=== PATIENT | male | born 1950 | race Caucasian/White ===

== ENCOUNTER 2018-05-31 12:05 | Inpatient (IN) ==
--- NOTE | 2018-05-31 13:23 | ED ---
HPI General Chief complaint: Extremity Injury, Lower Stated complaint: Right Ankle pain Time Seen by Provider: 05/31/18 12:59 Source: patient Mode of arrival: EMS Limitations: no limitations History of Present Illness HPI narrative: 67-year-old male with history of polycythemia on Hydrea, presents emergency department for evaluation of a right ankle injury. Patient states he tripped on a bucket, rolling his right ankle. He believes it is broken. Currently pain is a 5/10. He received morphine in route. Denies any alterations in sensation. Pain is constant, throbbing, exacerbated with movement or touch. He did not strike his head or lose consciousness. He has no other symptoms to report. Related Data Home Medications Medication Instructions Recorded Confirmed aspirin [Aspirin Low Dose] 81 mg PO DAILY 05/31/18 05/31/18 hydroxyurea [Hydrea] See Label Instructions .ROUTE 05/31/18 05/31/18 .COMPLEX Allergies Allergy/AdvReac Type Severity Reaction Status Date / Time penicillin G Allergy Severe Fever Unverified 06/29/17 01:12 Iodinated Contrast- Oral and Allergy Anaphylaxis Verified 05/31/18 14:00 IV Dye Review of Systems Except as stated in HPI: all other systems reviewed are negative PMFSH Medical History Medical History Kidney stone (Acute) Thrombocytopenia (Acute) Surgical History Surgical History S/P hernia surgery (Acute) Social History Social History Substance History: No History of Abuse Second Hand Smoke Exposure: No Smoking Status: Former smoker How Often Do You Have a Drink Containing Alcohol: Monthly or less Recent Travel in [facility] within the Last 8 Weeks: No Recent Out of Country Travel within the Last 8 Weeks: No Exam Narrative Exam Narrative: GENERAL: Well-nourished, well-developed male patient, lying in bed in no acute distress. SKIN: Focused skin assessment warm/dry. HEAD: Normocephalic. EYES: No scleral icterus. No injection or drainage. NECK: Supple, trachea midline. No JVD or lymphadenopathy. CARDIOVASCULAR: Regular rate and rhythm without murmurs, gallops, or rubs. RESPIRATORY: Breath sounds equal bilaterally. No accessory muscle use. GASTROINTESTINAL: Abdomen soft, non-tender, nondistended. EXTREMITY: The right ankle is very tender and swollen, especially over the lateral aspect. The range of motion is limited because of the pain and swelling. There is a lateral deformity. NEUROVASCULAR: Sensation intact to pain and light touch, foot is warm and well- perfused, dorsalis pedis pulse is palpable. BACK: Nontender without obvious deformity. No CVA tenderness. Procedures Orthopedic Joint Reduction Joint #1: Time Out Performed: Yes Side: right Joint Reduction Location: ankle Analgesia: procedural sedation Shoulder Technique Used (if applicable): other Technique Used: direct manipulation Post-Reduction Neuro Exam: intact Post-Reduction Vascular Exam: intact Post Reduction X-Ray Obtained: Yes Post Reduction X-Ray Results: reduced Splint Applied: Yes Patient Tolerated Procedure: well Additional Comments: Patient was placed under conscious sedation with propofol 100 mg intravenously Procedural Sedation Indications: fracture/dislocation reduction Presedation Evaluation: Patient has a history of polycythemia vera, otherwise healthy ASA Class: ASA 2 Moderate Systemic Disease Preparation: cinder crane operator applied, pulse oximeter, capnometry used, supplemental O2 applied, suction/airway equipment at bedside and IV secured Fentanyl: IV IV Propofol Dose (mgs): 100 Patient Tolerated Procedure: well Complications: none Interventions: oxygen applied Course Initial Documented Vital Signs Temperature 98.8 F 05/31/18 12:28 Pulse Rate 92 H 05/31/18 12:28 Respiratory Rate 16 05/31/18 12:28 Blood Pressure 114/65 05/31/18 12:28 Pulse Oximetry 95 05/31/18 12:28 Last Documented Vital Signs Temperature 98.8 F 05/31/18 12:28 Pulse Rate 92 H 05/31/18 12:28 Respiratory Rate 16 05/31/18 12:28 Blood Pressure 114/65 05/31/18 12:28 Pulse Oximetry 100 05/31/18 15:02 Medical Decision Making MIKA Attestation MIKA supervised visit: Yes MDM Narrative Medical decision making narrative: 67-year-old male presents emergency department for evaluation right ankle pain following an injury sustained when he tripped and fell over a bucket. Imaging study is ordered in the ambulance hallway. 1350 patient is transferred to a medical pod. He does have a trimalleolar fracture of the right ankle with posterior displacement. We discussed this with my attending physician. Lab work is ordered for preop prep. Ankle will be reduced here in the emergency department and splinted. I spoke with Dr. Chávez, orthopedic surgeon special education [employer] teacher. Patient will be admitted to medical service with planned surgical intervention tomorrow. Differential Diagnosis Differential Diagnosis: Differential diagnosis includes fracture, dislocation, fracture with dislocation, sprain, strain. Lab Data Lab results reviewed: Yes I reviewed the patient's lab results. Lab results narrative: Hemoglobin 12.4, bicarb 20.5, glucose 52, otherwise unremarkable Result diagrams: 05/31/18 15:30 05/31/18 15:30 Lab Results 05/31/18 05/31/18 05/31/18 Range/Units 15:30 15:30 15:30 WBC 3.8 L (4.0-11.0) th/mm3 RBC 2.94 L (4.50-5.90) mil/mm3 Hgb 12.4 L (13.0-17.0) gm/dL Hct 36.4 L (39.0-51.0) % MCV 123.9 H (80.0-100.0) fL MCH 42.4 H (27.0-34.0) pg MCHC 34.2 (32.0-36.0) % RDW 14.4 (11.6-17.2) % Plt Count 433 (150-450) th/mm3 MPV 7.5 (7.0-11.0) fL Neut % (Auto) 76.7 H (16.0-70.0) % Lymph % (Auto) 13.2 (9.0-44.0) % [place] % (Auto) 8.6 H (0.0-8.0) % Eos % (Auto) 0.7 (0.0-4.0) % Baso % (Auto) 0.8 (0.0-2.0) % Neut # (Auto) 2.9 (1.8-7.7) th/mm3 Lymph # (Auto) 0.5 L (1.0-4.8) th/mm3 [place] # (Auto) 0.3 (0.0-0.9) th/mm3 Eos # (Auto) 0.0 (0.0-0.4) th/mm3 Baso # (Auto) 0.0 (0.0-0.2) th/mm3 WBC Differential . Differential Comment Auto diff final PT 10.7 (9.8-11.6) sec INR 1.1 Ratio APTT 24.3 (24.3-30.1) sec Sodium 141 (136-145) meq/L Potassium 4.9 (3.5-5.1) meq/L Chloride 110 H (98-107) meq/L Carbon Dioxide 20.5 L (21.0-32.0) meq/L Anion Gap 11 (5-15) meq/L BUN 9 (7-18) mg/dL Creatinine 1.07 (0.60-1.30) mg/dL Estimated GFR 69 L (>89) mL/min Random Glucose 52 L (74-106) mg/dL Calcium 8.3 L (8.5-10.1) mg/dL Imaging Data Attestation: I personally reviewed and interpreted this imaging study as follows : My impression: Initial x-ray reveals trimalleolar fracture of the right ankle with posterior joint dislocation Radiologist's impression: Ankle X-Ray 05/31/18 13:01 CONCLUSION: Trimalleolar fracture involving the ankle with posterior joint dislocation. Chest X-Ray 05/31/18 13:48 CONCLUSION: No focal or acute intrathoracic disease. No significant changes. Ankle X-Ray 05/31/18 14:56 CONCLUSION: Status post closed reduction involving the previously noted posterior joint dislocation at the ankle. There is improved alignment of the fracture fragments on this postreduction study. Discharge Plan Discharge Disposition Patient Disposition: 30 Still Patient Discharge Condition Condition: Stable Discharge Details Diagnosis: Closed trimalleolar fracture of ankle Physicians Team ED Provider: Denis Persaud ED Midlevel Provider: Mavis Garcia Primary Care Provider: [facility] Other Providers: Mary Jane Wilson Rxs /Orders / Referrals /Forms Prescriptions: No Action hydroxyurea [Hydrea] 500 mg Capsule See Label Instructions .ROUTE .COMPLEX RF: 0 aspirin [Aspirin Low Dose] 81 mg Tablet,Delayed Release (Dr/Ec) 81 mg PO DAILY RF: 0 Status ED Status: Ready for Discharge
--- NOTE | 2018-05-31 13:35 | XR ---
EXAM DATE: 05/31/2018 1:22 PM EDT AGE/SEX: 67 years / Male INDICATIONS: Stepped out of a truck moving things today. CLINICAL DATA: This is the patient's initial encounter. Patient reports that signs and symptoms have been present for 1 day and indicates a pain score of 10/10. MEDICAL/SURGICAL HISTORY: None. None. COMPARISON: No prior exams available for comparison. FINDINGS: There are displaced fractures involving the distal fibula as well as distal tibia characteristic for a trimalleolar fracture. There is posterior joint dislocation at the mortise joint. The talus appears to be grossly intact. The calcaneus appears to be grossly intact. There is diffuse soft tissue swell ing. CONCLUSION: Trimalleolar fracture involving the ankle with posterior joint dislocation. Electronically signed by: Jaime Tan MD 05/31/2018 1:34 PM EDT
[2018-05-31] MEDS ORDERED: Morphine Sulfate Inj 2 MG/ML Vial IV.PUSH ONE (13:45)
[2018-05-31] MEDS ORDERED: Morphine Inj 4 MG/ML Vial IV.PUSH ONE (14:00)
--- NOTE | 2018-05-31 14:48 | XR ---
EXAM DATE: 05/31/2018 2:45 PM EDT AGE/SEX: 67 years / Male INDICATIONS: Evaluate for pneumonia, pneumothorax, or communicable disease. CLINICAL DATA: This is the patient's initial encounter. Patient reports that signs and symptoms have been present for 1 day and indicates a pain score of 0/10. MEDICAL/SURGICAL HISTORY: None. None. [place] [facility] [place]. . FINDINGS: A single AP view of the chest demonstrates the lungs to be symmetrically aerated without evidence of mass, infiltrate or effusion. The cardiomediastinal contours are unremarkable. Osseous structures a re stable. There are multiple old bilateral rib fractures. There appear to be old bilateral clavicula r fractures. No significant changes compared to the prior exam.. CONCLUSION: No focal or acute intrathoracic disease. No significant changes. Electronically signed by: Jaime Tan MD 05/31/2018 2:46 PM EDT
[2018-05-31] MEDS ORDERED: Sod Chloride 0.9% Inj 1,000 ML IV.SIG ONE (14:49)
--- NOTE | 2018-05-31 15:38 | XR ---
EXAM DATE: 05/31/2018 3:25 PM EDT AGE/SEX: 67 years / Male INDICATIONS: Post reduction CLINICAL DATA: This is the patient's initial encounter. Patient reports that signs and symptoms have been present for 1 day and indicates a pain score of 8/10. MEDICAL/SURGICAL HISTORY: None. None. COMPARISON: [facility] – [place], ANKLE COMPLETE RIGHT MIN 3V, 05/31/2018. . FINDINGS: This is compared to the prior exam. The previously noted posterior joint dislocation has been reduced . There is improved alignment involving the fractures of the distal tibia and fibula. There is overly ing cast material now in place. CONCLUSION: Status post closed reduction involving the previously noted posterior joint dislocation at the ankle. There is improved alignment of the fracture fragments on this postreduction study. Electronically signed by: Jaime Tan MD 05/31/2018 3:36 PM EDT
[2018-05-31 15:54] LABS: Baso % (Auto) 0.8 % (0.0-2.0); Eos % (Auto) 0.7 % (0.0-4.0); Hematocrit 36.4 % (39.0-51.0); Hemoglobin 12.4 gm/dL (13.0-17.0); Lymph # (Auto) 0.5 th/mm3 (1.0-4.8); Lymph % (Auto) 13.2 % (9.0-44.0); Mean Corpuscular HGB Conc 34.2 % (32.0-36.0); Mean Corpuscular Hemoglobin 42.4 pg (27.0-34.0); Mean Corpuscular Volume 123.9 fL (80.0-100.0); Mean Platelet Volume 7.5 fL (7.0-11.0); Mono # (Auto) 0.3 th/mm3 (0.0-0.9); Mono % (Auto) 8.6 % (0.0-8.0); Neut # (Auto) 2.9 th/mm3 (1.8-7.7); Neut % (Auto) 76.7 % (16.0-70.0); Platelet Count 433 th/mm3 (150-450); Red Blood Count 2.94 mil/mm3 (4.50-5.90); Red Cell Distribution Width 14.4 % (11.6-17.2); White Blood Count 3.8 th/mm3 (4.0-11.0)
[2018-05-31 16:05] LABS: Activated Partial Thrombo Time 24.3 sec (24.3-30.1); INR 1.1 Ratio; Prothrombin Time 10.7 sec (9.8-11.6)
[2018-05-31 16:19] LABS: Calcium 8.3 mg/dL (8.5-10.1); Carbon Dioxide 20.5 meq/L (21.0-32.0)
[2018-05-31 16:21] LABS: Potassium 4.9 meq/L (3.5-5.1)
--- NOTE | 2018-05-31 18:03 | P.HPIM ---
History of Present Illness Primary Care Physician: [facility] Chief Complaint: right ankle pain after a fall History of Present Illness: patient is a 67 y/o male with history of polycythemia who presented to ER after he fall. he says that he fell off a bucket and injured his right ankle. at the time of my evaluation the pain was moderate in intensity. he denies any prodromal symptoms before the fall, including chest pain, sob, or dizziness. he didn't pass out and there's no history of head trauma. Inpatient Certification: I certify that the inpatient services were ordered in accordance with Medicare regulations governing the order. This includes certification that hospital inpatient services are reasonable and necessary and in the case of services not specified as inpatient-only under 42 CFR 419.22(n), that they are appropriately provided as inpatient services in accordance to with the 2-midnight benchmark under 43 CFR 412.3(e) Review of Systems All other systems reviewed negative except as stated in HPI PMFSH - History History Provided By: Patient - Medical History Medical History: Medical History (Last Updated 05/31/18 @ 14:02 by Juhi Costello) Kidney stone Thrombocytopenia - Surgical History Surgical History: Surgical History (Last Updated 05/31/18 @ 14:02 by Juhi Costello) S/P hernia surgery - Tobacco History Second Hand Smoke Exposure: No Smoking Status: Former smoker - Alcohol History How Often Do You Have a Drink Containing Alcohol: Monthly or less - Substance Use History Substance History: No History of Abuse - Travel History Recent Travel in the [place] Within the Last 8 Weeks: No Recent Travel Out of the Country Within the Last 8 Weeks: No - Immunization History Tetanus Immunization: Unsure Hx Influenza Vaccine This Season: No Medications and Allergies Allergies Allergy/AdvReac Type Severity Reaction Status Date / Time penicillin G Allergy Severe Fever Unverified 06/29/17 01:12 Iodinated Contrast- Oral and Allergy Anaphylaxis Verified 05/31/18 14:00 IV Dye Home Medications Medication Instructions Recorded Confirmed Type aspirin [Aspirin Low Dose] 81 mg PO DAILY 05/31/18 05/31/18 History hydroxyurea [Hydrea] See Label Instructions .ROUTE 05/31/18 05/31/18 History .COMPLEX Exam Vital signs: Vital Signs 05/31/18 12:28 05/31/18 15:02 Temperature 98.8 F Pulse Rate 92 H Respiratory Rate 16 Blood Pressure 114/65 Pulse Oximetry 95 100 Intake & Output 05/30/18 05/31/18 05/31/18 18:59 06:59 18:59 Weight 88.451 kg - Constitutional no acute distress - Routine HEENT Exam Head: Present: atraumatic Eye: Present: PERRL - Routine Neck Exam Present: supple, full ROM - Routine Respiratory Exam Present: CTA bilaterally - Routine Cardiovascular Exam Present: RRR - Routine Abdominal Exam Present: soft - Routine Extremities Exam Comments: no pedal edema. - Routine Neurological Exam Present: alert, oriented X3 Results - Labs CBC & Chem 7: 05/31/18 15:30 05/31/18 15:30 Labs: Short CBC 05/31/18 Range/Units 15:30 WBC 3.8 L (4.0-11.0) th/mm3 Hgb 12.4 L (13.0-17.0) gm/dL Hct 36.4 L (39.0-51.0) % Plt Count 433 (150-450) th/mm3 BMP 05/31/18 15:30 Sodium 141 Potassium 4.9 Chloride 110 H Carbon Dioxide 20.5 L BUN 9 Creatinine 1.07 Calcium 8.3 L - Imaging Impressions Ankle X-Ray 05/31/18 13:01 CONCLUSION: Trimalleolar fracture involving the ankle with posterior joint dislocation. Chest X-Ray 05/31/18 13:48 CONCLUSION: No focal or acute intrathoracic disease. No significant changes. Ankle X-Ray 05/31/18 14:56 CONCLUSION: Status post closed reduction involving the previously noted posterior joint dislocation at the ankle. There is improved alignment of the fracture fragments on this postreduction study. Caprini VTE Risk Assessment Caprini VTE Risk Assessment: Moderate/High Risk (score >= 2) Caprini Risk Assessment Model: Point Value = 1 Point Value = 2 Point Value = 3 Point Value = 5 Age 41-60 Minor surgery BMI > 25 kg/m2 Swollen legs Varicose veins or History of unexplained or recurrent spontaneous Oral contraceptives or hormone replacement Sepsis (< 1 month) Serious lung disease, including pneumonia (< 1 month) Abnormal pulmonary function Acute myocardial infarction Congestive heart failure (< 1 month) History of inflammatory bowel disease Medical patient at bed rest Age 61-74 Arthroscopic surgery Major open surgery (> 45 min) Laparoscopic surgery (> 45 min) Malignancy Confined to bed (> 72 hours) Immobilizing plaster cast Central venous access Age >= 75 History of VTE Family history of VTE Factor V Leiden Prothrombin [id number] Lupus anticoagulant Anticardiolipin antibodies Elevated serum homocysteine Heparin-induced thrombocytopenia Other congenital or acquired thrombophilia Stroke (< 1 month) Elective arthroplasty Hip, pelvis, or leg fracture Acute spinal cord injury (< 1 month) Prophylaxis Regimen: Total Risk Factor Score Risk Level Prophylaxis Regimen 0-1 Low Early ambulation 2 Moderate Order ONE of the following: *Sequential Compression Device (SCD) *Heparin 5000 units SQ BID 3-4 Higher Order ONE of the following medications: *Heparin 5000 units SQ TID *Enoxaparin/Lovenox 40 mg SQ daily (WT < 150 kg, CrCl > 30 mL/min) *Enoxaparin/Lovenox 30 mg SQ daily (WT < 150 kg, CrCl > 10-29 mL/min) *Enoxaparin/Lovenox 30 mg SQ BID (WT < 150 kg, CrCl > 30 mL/min) AND/OR *Sequential Compression Device (SCD) 5 or more Highest Order ONE of the following medications: *Heparin 5000 units SQ TID (Preferred with Epidurals) *Enoxaparin/Lovenox 40 mg SQ daily (WT < 150 kg, CrCl > 30 mL/min) *Enoxaparin/Lovenox 30 mg SQ daily (WT < 150 kg, CrCl > 10-29 mL/min) *Enoxaparin/Lovenox 30 mg SQ BID (WT < 150 kg, CrCl > 30 mL/min) AND *Sequential Compression Device (SCD) Assessment and Plan - Plan A/P - right ankle fracture after a fall NPO after midnight- ortho consulted. continue with pain control. -polycythemia; resume Hydroxyurea. -DVT prophylaxis; pending surgical intervention- per ortho. Discussed Condition With: ER and the patient. Discharge Planning: awaiting ortho evaluation/ intervention.
[2018-05-31] MEDS ORDERED: Sod Chloride 0.9% Inj 1,000 ML IV.CONT SCH (18:15)
[2018-05-31] MEDS: Dextrose 5%/NaCl 0.9% Inj 1,000 ML IV.CONT SCH (20:53)
[2018-05-31] MEDS: Morphine Inj 4 MG/ML Vial IV.PUSH PRN (20:54)
[2018-05-31] MEDS: Hydroxyurea 500 MG Capsule PO SCH (20:59)
[2018-05-31] MEDS ORDERED: Metoprolol Tartrate 25 MG Tablet PO SCH (21:30)
[2018-05-31] MEDS ORDERED: Chlorhexidine Gluconate 2% 1 Pack (2 Cloths) TOPICAL SCH (21:30)
[2018-05-31] MEDS ORDERED: Sodium Chlor 0.9% Inj 500 ML IV.SIG SCH (22:00)
[2018-06-01] MEDS: Morphine Inj 4 MG/ML Vial IV.PUSH PRN ×5 (01:32→23:02)
[2018-06-01] MEDS: Dextrose 5%/NaCl 0.9% Inj 1,000 ML IV.CONT SCH ×2 (06:16→18:13)
--- NOTE | 2018-06-01 07:46 | P.CONOP ---
[facility] Orthopedics Consult Note - [facility] Consult date: 06/01/18 Consult reason: joint pain, fracture Chief complaint: trimalleolar fracture R ankle Narrative: 67 y/o male with history of polycythemia who presented to ER after he fall. He says that he fell off a bucket and injured his right ankle. Patient states he lost his balance prior to the fall. He denies any loss of consciousness or head trauma. He denies any other extremity injury. He complains of right ankle pain. He denies any significant numbness or tingling. Review of Systems Denies fevers, chills, blurry vision, throat pain, abdominal or chest pain, cough, difficulty with breathing, change in urination, weakness, numbness or tingling, anxiety, rash Reports right ankle pain. [facility] - History History Provided By: Patient - Medical History Medical History: Medical History (Last Reviewed 06/01/18 @ 06:22 by Debby Lopez RN) Kidney stone Thrombocytopenia - Surgical History Surgical History: Surgical History (Last Reviewed 06/01/18 @ 05:23 by Debby Lopez RN) S/P hernia surgery - Tobacco History Second Hand Smoke Exposure: No Tobacco Use In Past 30 Days: No Smoking Status: Former smoker - Alcohol History How Often Do You Have a Drink Containing Alcohol: Monthly or less - Substance Use History Substance History: No History of Abuse - Travel History Recent Travel in the [place] Within the Last 8 Weeks: No Recent Travel Out of the Country Within the Last 8 Weeks: No - Immunization History Tetanus Immunization: Unsure Hx Influenza Vaccine This Season: Yes Medications and Allergies Active Medications: Active Medications Chlorhexidine Gluconate (Chlorhexidine 2% Cloth) 3 pack [employer] [facility] Stop: 06/03/18 21:24 Hydroxyurea (Hydrea) 500 mg PO DAILY [facility] Last Admin: 05/31/18 20:59 Dose: Not Given Dextrose/Sodium Chloride (D5w/Normal Saline Inj) 1,000 mls @ 100 mls/hr IV.CONT .Q10H [facility] Last Infusion: 06/01/18 06:45 Dose: Infused Lactated Ringer's (Lr 1000 Ml Inj) 1,000 mls @ 30 mls/hr IV.SIG .Q24H [facility] Stop: 06/03/18 21:24 Last Admin: 06/01/18 06:45 Dose: Not Given Sodium Chloride (Ns Inj) 500 mls @ 30 mls/hr IV.SIG .Q10H [facility] Stop: 06/03/18 21:24 Metoprolol Tartrate (Lopressor) 25 mg PO [employer] [facility] Stop: 06/03/18 21:24 Morphine Sulfate (Morphine Inj) 2 mg IV.PUSH Q4H PRN PRN Reason: Acute Pain Last Admin: 06/01/18 05:58 Dose: 2 mg Ondansetron HCl (Zofran Odt) 4 mg PO Q8H PRN PRN Reason: nausea Allergies Allergy/AdvReac Type Severity Reaction Status Date / Time penicillin G Allergy Severe Fever Verified 05/31/18 20:10 Iodinated Contrast- Oral and Allergy Anaphylaxis Verified 05/31/18 20:10 IV Dye Home Medications Medication Instructions Recorded Confirmed Type aspirin [Aspirin Low Dose] 81 mg PO DAILY 05/31/18 05/31/18 History hydroxyurea [Hydrea] See Label Instructions .ROUTE 05/31/18 05/31/18 History .COMPLEX Exam Vital signs: Vital Signs 05/31/18 12:28 05/31/18 15:02 05/31/18 15:57 Temperature 98.8 F Pulse Rate 92 H 84 Respiratory Rate 16 18 Blood Pressure 114/65 160/84 H Pulse Oximetry 95 100 99 05/31/18 18:00 05/31/18 19:42 05/31/18 20:00 Temperature 98.3 F 98.3 F Pulse Rate 114 H 115 H 105 H Respiratory Rate 19 20 20 Blood Pressure 139/72 159/67 H 144/77 H Pulse Oximetry 98 97 98 06/01/18 00:00 06/01/18 04:00 Temperature 99.6 F 98.4 F Pulse Rate 98 H 81 Respiratory Rate 18 16 Blood Pressure 129/60 137/71 Pulse Oximetry 95 95 Intake & Output 05/31/18 06/01/18 06/01/18 18:59 06:59 18:59 Intake Total 2935 / 2935 Output Total 1150 / 1150 Balance 1785 / 1785 Weight 88.451 kg 93.1 kg Intake: IV 2935 / 2935 D5W/Normal Saline Inj 1,000 ML 1935 / 1935 @ 100 mls/hr IV.CONT .Q10H [facility] Rx#:[id number] Oral 0 / 0 Output: Urine 1150 / 1150 Other: Weight On Admission 92.553 kg Narrative: Awake, alert, no acute distress Normocephalic Pupils equal No JVD Moist because movements Soft nontender abdomen Regular rate Nonlabored respirations Right lower extremity: Splint in place over lower leg. Patient should positive EHL and FHL. Sensation intact of her toes. No tenderness palpation or visible deformities proximally. Brisk cap refill. Bilateral upper extremities and left lower extremity: No tenderness palpation, visible deformities. Full active range of motion and strength throughout. Sensation intact. Brisk cap refill. No rash Normal affect Results - Labs Result Diagrams: 05/31/18 15:30 05/31/18 15:30 Labs: Laboratory Results - last 24 hr 05/31/18 05/31/18 05/31/18 15:30 15:30 15:30 WBC 3.8 L RBC 2.94 L Hgb 12.4 L Hct 36.4 L MCV 123.9 H MCH 42.4 H MCHC 34.2 RDW 14.4 Plt Count 433 MPV 7.5 Neut % (Auto) 76.7 H Lymph % (Auto) 13.2 [place] % (Auto) 8.6 H Eos % (Auto) 0.7 Baso % (Auto) 0.8 Neut # (Auto) 2.9 Lymph # (Auto) 0.5 L [place] # (Auto) 0.3 Eos # (Auto) 0.0 Baso # (Auto) 0.0 WBC Differential . Differential Comment Auto diff final PT 10.7 INR 1.1 APTT 24.3 Sodium 141 Potassium 4.9 Chloride 110 H Carbon Dioxide 20.5 L Anion Gap 11 BUN 9 Creatinine 1.07 Estimated GFR 69 L Random Glucose 52 L Calcium 8.3 L - Diagnostic results Imaging: Impressions Ankle X-Ray 05/31/18 13:01 CONCLUSION: Trimalleolar fracture involving the ankle with posterior joint dislocation. Ankle X-Ray 05/31/18 14:56 CONCLUSION: Status post closed reduction involving the previously noted posterior joint dislocation at the ankle. There is improved alignment of the fracture fragments on this postreduction study. Imaging has been reviewed by myself. I agree with radiologist. Trimalleolar ankle fracture with initial dislocation that has since been reduced. Assessment and Plan - Assessment and Plan 67-year-old gentleman with closed right trimalleolar ankle fracture dislocation Diagnoses and treatment options were reviewed with the patient. Given he does have a trimalleolar ankle fracture with dislocation, I would certainly recommend operative intervention in the form of open reduction internal fixation of his right ankle fracture. Risks of surgery including but not limited to: Infection, nonunion or malunion, hardware malposition or failure, neurovascular injury, ankle pain and/or stiffness, possible need for further surgery, and other unforeseen competitions were discussed with the patient. At this time he would like to proceed with the above-mentioned procedure. Patient is nothing by mouth with plan for surgery later today.
[2018-06-01] MEDS ORDERED: Famotidine PF Inj 20 MG/2 ML Vial ONE (08:04)
[2018-06-01] MEDS ORDERED: fentaNYL Citrate Inj 100 MCG/2 ML Ampul ONE ×2 (08:04→15:02)
[2018-06-01] MEDS: Hydroxyurea 500 MG Capsule PO SCH (10:28)
[2018-06-01] MEDS ORDERED: Lidocaine PF 1% Inj 5 ML Syringe INFILTRATN ONE (12:00)
[2018-06-01] MEDS ORDERED: Phenylephrine/NS 1000 MCG/10ML Syringe IV.PUSH ONE (12:00)
[2018-06-01] MEDS ORDERED: Clindamycin Inj 600 MG/4 ML Vial ONE (12:36)
[2018-06-01] MEDS ORDERED: Post-op Orders (for Pharmacy) OTHER STA (14:52)
--- NOTE | 2018-06-01 14:52 | P.BOP ---
Date of procedure: 06/01/18 Procedure: ORIF right ankle fracture dislocation Implants: Synthes Anesthesia: GETA Surgeon: Mary Jane Wilson MD Estimated blood loss (mL): 30 Tourniquet time (min): 60 Pathology: none sent Condition: stable Disposition: PACU
[2018-06-01] MEDS ORDERED: *morphine SULFATE 4 MG/ML PERIprocedure ONLY ONE ×2 (14:59→15:10)
--- NOTE | 2018-06-01 16:03 | XR ---
EXAM DATE: 06/01/2018 3:21 PM EDT AGE/SEX: 67 years / Male INDICATIONS: Orif right ankle. CLINICAL DATA: This is the patient's subsequent encounter. Patient reports that signs and symptoms h ave been present for 2 days and indicates a pain score of Nonresponsive. MEDICAL/SURGICAL HISTORY: . Trimalleolar fracture right ankle. None. COMPARISON: [facility] [place]LE [place] RIGHT 2V, 05/31/2018. . FINDINGS: Sideplate and osseous screws secure distal right fibular fracture with an osseous screws securing the medial malleolus. The ankle mortise is symmetric CONCLUSION: Successful open reduction and internal fixation of bimalleolar fracture with gnosticism of the ankle mortise. Electronically signed by: Tarun Woods MD 06/01/2018 4:01 PM EDT
--- NOTE | 2018-06-01 17:38 | P.PNIM ---
Subjective Interval history: The patient was seen following surgery. He denied any pain. He said that he was looking forward to having something to eat. Discussed with nursing. Physical Exam Vital signs: Vital Signs 05/31/18 18:00 05/31/18 19:42 05/31/18 20:00 Temperature 98.3 F 98.3 F Pulse Rate 114 H 115 H 105 H Respiratory Rate 19 20 20 Blood Pressure 139/72 159/67 H 144/77 H Pulse Oximetry 98 97 98 06/01/18 00:00 06/01/18 04:00 06/01/18 08:00 Temperature 99.6 F 98.4 F 98.0 F Pulse Rate 98 H 81 75 Respiratory Rate 18 16 16 Blood Pressure 129/60 137/71 145/69 H Pulse Oximetry 95 95 93 L 06/01/18 10:26 06/01/18 14:56 06/01/18 15:00 Temperature 98.1 F Pulse Rate 88 82 Respiratory Rate 18 10 L 10 L Blood Pressure 196/110 H 193/95 H Pulse Oximetry 99 99 06/01/18 15:15 06/01/18 15:30 06/01/18 15:45 Temperature Pulse Rate 81 80 83 Respiratory Rate 10 L 11 L 12 Blood Pressure 147/78 H 147/70 H 148/76 H Pulse Oximetry 97 96 96 06/01/18 16:00 Temperature 98.3 F Pulse Rate 83 Respiratory Rate 14 Blood Pressure 144/73 H Pulse Oximetry 95 Intake & Output 05/31/18 06/01/18 06/01/18 18:59 06:59 18:59 Intake Total 2935 / 2935 1000 / 1000 Output Total 1150 / 1150 30 / 30 Balance 1785 / 1785 970 / 970 Weight 88.451 kg 93.1 kg Intake: IV 2935 / 2935 D5W/Normal Saline Inj 1,000 ML 1935 / 1935 @ 100 mls/hr IV.CONT .Q10H [facility] Rx#:[id number] Oral 0 / 0 Anesthesia Amount 1000 / 1000 Output: Urine 1150 / 1150 Estimated Blood Loss 30 / 30 Other: Weight On Admission 92.553 kg Narrative: GENERAL: Well-nourished, well-developed male patient, lying in bed in no acute distress. SKIN: Focused skin assessment warm/dry. HEAD: Normocephalic. EYES: No scleral icterus. No injection or drainage. NECK: Supple, trachea midline. No JVD or lymphadenopathy. CARDIOVASCULAR: Regular rate and rhythm without murmurs, gallops, or rubs. RESPIRATORY: Breath sounds equal bilaterally. No accessory muscle use. GASTROINTESTINAL: Abdomen soft, non-tender, nondistended. EXTREMITY: The right lower extremity is bandaged. NEUROVASCULAR: No gross deficits. BACK: Nontender without obvious deformity. No CVA tenderness. Results - Labs CBC & Chem 7: 05/31/18 15:30 05/31/18 15:30 - Imaging Impressions Ankle X-Ray 06/01/18 00:00 CONCLUSION: Successful open reduction and internal fixation of bimalleolar fracture with nondenominational of the ankle mortise. Assessment and Plan - Plan Right ankle fracture After a fall. Orthopedic surgery consult appreciated. S/p repair 06/01. - weightbearing, wound care and anticoagulation per surgery. - rehab efforts. - incentive spirometry. - pain control with a bowel regimen. Polycythemia Stable at this time. - resume home hydroxyurea. Hypoglycemia Glucose was 52 on admission. Not on hypoglycemics. - ADAT. - check fingerstick. BMP in AM. DVT prophylaxis: per ortho Discharge Planning: Per ortho recommendations
--- NOTE | 2018-06-01 18:44 | ECG ---
Date Performed: 05/31/2018 Time Performed: 20:24:53 PTAGE: 67 years EKG: SINUS TACHYCARDIA LOW QRS VOLTAGE IN PRECORDIAL LEADS ABNORMAL RHYTHM ECG NO PREVIOUS TRACING DOCTOR: Mane Bansal Interpretating Date/Time 06/01/2018 18:42:24
[2018-06-01] MEDS: Clindamycin 600 mg/NS Premix 600 MG/50 ML PIGGYBACK IV.SIG SCH (20:15)
[2018-06-02] MEDS: Morphine Inj 4 MG/ML Vial IV.PUSH PRN ×2 (04:10→08:32)
[2018-06-02] MEDS: Clindamycin 600 mg/NS Premix 600 MG/50 ML PIGGYBACK IV.SIG SCH ×2 (05:42→12:21)
[2018-06-02] MEDS: Dextrose 5%/NaCl 0.9% Inj 1,000 ML IV.CONT SCH ×2 (06:31→10:09)
[2018-06-02 07:11] LABS: Hematocrit 31.1 % (39.0-51.0); Hemoglobin 10.8 gm/dL (13.0-17.0); Mean Corpuscular HGB Conc 34.6 % (32.0-36.0); Mean Corpuscular Volume 124.2 fL (80.0-100.0); Mean Platelet Volume 7.6 fL (7.0-11.0); Platelet Count 364 th/mm3 (150-450); Red Cell Distribution Width 13.8 % (11.6-17.2); White Blood Count 4.6 th/mm3 (4.0-11.0)
[2018-06-02 07:32] LABS: Calcium 8.3 mg/dL (8.5-10.1); Potassium 4.2 meq/L (3.5-5.1)
[2018-06-02] MEDS: Hydroxyurea 500 MG Capsule PO SCH (08:32)
--- NOTE | 2018-06-02 09:10 | P.PNIM ---
Subjective Interval history: The patient was eating breakfast. He stated the morphine did not last too long and was wondering about starting pills. He said that he would be willing to work with physical therapy. He had no acute complaints at this time. Discussed with nursing. Physical Exam Vital signs: Vital Signs 06/01/18 10:26 06/01/18 11:10 06/01/18 14:56 Temperature 98.1 F 98.1 F Pulse Rate 78 88 Respiratory Rate 18 14 10 L Blood Pressure 144/66 H 196/110 H Pulse Oximetry 96 99 06/01/18 15:00 06/01/18 15:15 06/01/18 15:30 Temperature Pulse Rate 82 81 80 Respiratory Rate 10 L 10 L 11 L Blood Pressure 193/95 H 147/78 H 147/70 H Pulse Oximetry 99 97 96 06/01/18 15:45 06/01/18 16:00 06/01/18 20:00 Temperature 98.3 F 98.1 F Pulse Rate 83 83 76 Respiratory Rate 12 14 18 Blood Pressure 148/76 H 144/73 H 135/61 Pulse Oximetry 96 95 95 06/02/18 00:00 06/02/18 02:30 06/02/18 04:00 Temperature 97.1 F L 97.9 F Pulse Rate 70 80 Respiratory Rate 18 15 18 Blood Pressure 124/67 130/60 Pulse Oximetry 95 95 06/02/18 07:49 Temperature Pulse Rate Respiratory Rate 18 Blood Pressure Pulse Oximetry Intake & Output 06/01/18 06/02/18 06/02/18 18:59 06:59 18:59 Intake Total 1000 / 1000 370 / 370 Output Total 200 / 200 Balance 970 / 970 370 / 370 -200 / -200 Weight 93.1 kg Intake: IV 50 / 50 Cleocin 600 mg/NS Premix 600 mg 50 / 50 In 50 ml @ 100 mls/hr IV.SIG Q8H [facility] Rx#:[id number] Oral 320 / 320 Anesthesia Amount 1000 / 1000 Output: Urine 200 / 200 Estimated Blood Loss Other: # Voids 1 Date of Last Bowel Movement 05/31/18 05/31/18 05/31/18 Narrative: GENERAL: Well-nourished, well-developed male patient, lying in bed in no acute distress. SKIN: Focused skin assessment warm/dry. HEAD: Normocephalic. EYES: No scleral icterus. No injection or drainage. NECK: Supple, trachea midline. No JVD or lymphadenopathy. CARDIOVASCULAR: Regular rate and rhythm without murmurs, gallops, or rubs. RESPIRATORY: Breath sounds equal bilaterally. No accessory muscle use. GASTROINTESTINAL: Abdomen soft, non-tender, nondistended. EXTREMITY: The right lower extremity is bandaged. NEUROVASCULAR: No gross deficits. BACK: Nontender without obvious deformity. No CVA tenderness. Results - Labs CBC & Chem 7: 06/02/18 06:19 06/02/18 06:19 Laboratory Results - last 24 hr 06/01/18 06/02/18 06/02/18 18:18 06:19 06:19 WBC 4.6 RBC 2.50 L Hgb 10.8 L Hct 31.1 L MCV 124.2 H MCH 43.0 H MCHC 34.6 RDW 13.8 Plt Count 364 MPV 7.6 Sodium 138 Potassium 4.2 Chloride 107 Carbon Dioxide 22.0 Anion Gap 9 BUN 8 Creatinine 0.96 Estimated GFR 78 L POC Glucose 159 H Random Glucose 125 H Calcium 8.3 L - Imaging Impressions Ankle X-Ray 06/01/18 00:00 CONCLUSION: Successful open reduction and internal fixation of bimalleolar fracture with anabaptist of the ankle mortise. Assessment and Plan - Plan Right ankle fracture After a fall. Orthopedic surgery consult appreciated. S/p repair 06/01. - weightbearing, wound care and anticoagulation per surgery. - rehab efforts. - incentive spirometry. - [place] and morphine as needed with a bowel regimen. Polycythemia Stable at this time. - resume home hydroxyurea. Anemia S/t above. - CBC in AM. Hypoglycemia Glucose was 52 on admission. Not on hypoglycemics. - ADAT. - resolved. DVT prophylaxis: per ortho Discharge Planning: Per ortho recommendations
[2018-06-02] MEDS: Senna/Docusate Sodium 8.6/50 MG Tablet PO SCH ×2 (10:14→21:47)
--- NOTE | 2018-06-02 15:46 | P.PNOP ---
Subjective Interval history: Patient resting comfortably. Pain relatively well controlled at present Physical Exam Vital signs: Vital Signs 06/01/18 16:00 06/01/18 20:00 06/02/18 00:00 Temperature 98.3 F 98.1 F 97.1 F L Pulse Rate 83 76 70 Respiratory Rate 14 18 18 Blood Pressure 144/73 H 135/61 124/67 Pulse Oximetry 95 95 95 06/02/18 02:30 06/02/18 04:00 06/02/18 07:49 Temperature 97.9 F Pulse Rate 80 Respiratory Rate 15 18 18 Blood Pressure 130/60 Pulse Oximetry 95 06/02/18 08:00 06/02/18 08:34 06/02/18 10:14 Temperature 98.6 F Pulse Rate 98 H Respiratory Rate 18 18 18 Blood Pressure 128/62 Pulse Oximetry 94 L 06/02/18 10:44 06/02/18 12:00 06/02/18 14:10 Temperature 98.1 F Pulse Rate 78 Respiratory Rate 18 18 18 Blood Pressure 122/61 Pulse Oximetry 96 Intake & Output 06/01/18 06/02/18 06/02/18 18:59 06:59 18:59 Intake Total 1000 / 1000 370 / 370 50 / 50 Output Total 30 / 30 200 / 200 Balance 970 / 970 370 / 370 -150 / -150 Weight 93.1 kg Intake: IV 50 / 50 50 / 50 Cleocin 600 mg/NS Premix 600 mg 50 / 50 50 / 50 In 50 ml @ 100 mls/hr IV.SIG Q8H [facility] Rx#:[id number] Oral 320 / 320 Anesthesia Amount 1000 / 1000 Output: Urine 200 / 200 Estimated Blood Loss 30 / 30 Other: # Voids 1 Date of Last Bowel Movement 05/31/18 05/31/18 05/31/18 Narrative: Awake, alert, no acute distress Right lower extremity: Splint in place over lower leg without significant drainage. Patient damages positive EHL and FHL. Sensation appears intact over distal toes. Brisk cap refill. Results - Labs CBC & Chem 7: 06/02/18 06:19 06/02/18 06:19 Laboratory Results - last 24 hr 06/01/18 06/02/18 06/02/18 18:18 06:19 06:19 WBC 4.6 RBC 2.50 L Hgb 10.8 L Hct 31.1 L MCV 124.2 H MCH 43.0 H MCHC 34.6 RDW 13.8 Plt Count 364 MPV 7.6 Sodium 138 Potassium 4.2 Chloride 107 Carbon Dioxide 22.0 Anion Gap 9 BUN 8 Creatinine 0.96 Estimated GFR 78 L POC Glucose 159 H Random Glucose 125 H Calcium 8.3 L - Imaging Impressions Ankle X-Ray 06/01/18 00:00 CONCLUSION: Successful open reduction and internal fixation of bimalleolar fracture with catholic of the ankle mortise. Assessment and Plan - Assessment and Plan 67-year-old male, POD#1 s/p ORIF R ankle 1. Nonweightbearing right lower extremity in splint. Splint is to remain in place until patient follows up. 2. Physical therapy for mobilization 3. Plan for discharge home once mobilizing with therapy and pain well controlled.
--- NOTE | 2018-06-02 17:18 | P.OP ---
Date of procedure: 06/02/18 Procedure: Open reduction internal fixation of right trimalleolar ankle fracture dislocation with fixation of medial and lateral malleoli Implants: Synthes Anesthesia: GETA Surgeon: Mary Jane Wilson MD Estimated blood loss (mL): 30 Pathology: none sent Operation and Findings: Indications for procedure: Patient is a 67-year-old gentleman who presented to the emergency department after a reported fall off of a bucket. Patient was found to have right ankle fracture dislocation which was reduced in the emergency department and splinted. Patient was found to have a unstable trimalleolar ankle fracture and recommendation for operative intervention was discussed with the patient. Risks of surgery including but not limited to: Infection, nonunion or malunion, hardware malposition or failure, persistent ankle pain and/or stiffness, neurovascular injury, possible need for further surgery, and other unforeseen comp occasions were all discussed with the patient. At this time he has consented to the above-mentioned procedure. Description of procedure: Patient was brought back to the operating room placed supine on operating table with all bony prominences well-padded. General anesthesia then ensued. A tourniquet was placed on the upper thigh and patient was prepped and draped in standard sterile fashion. Preoperative antibiotics were given within 1 hour of incision. A timeout was performed to return for the correct patient, side, site and procedure to be performed. The leg was exsanguinated and the tourniquet inflated to 250 mmHg. A lateral incision was made over the distal fibula with sharp dissection through skin and subcutaneous tissue. The fracture site was immediately encountered and found to be highly comminuted. There was a large fracture fragment which was oblique in nature at the most distal aspect of the fracture and a lag screw was placed through this after it was reduced under direct visualization and held with a bone clamp. A distal fibular plate was then applied to the lateral aspect of the fibula. This was initially fixed to the fibula distally with nonlocking cortical screw. The plate was then used to be able to push the fibula out to length as the fracture was highly comminuted and shortened. The fibula was held out to length with bone clamps. This was verified on AP and lateral radiographs. Nonlocking screws were then placed proximally. Distal locking screws were then placed. At this time, the fibula was found to be out to length and hardware in appropriate position. I then turned my attention to the medial malleolus. A small incision was made over the anterior medial aspect of the ankle. Sharp dissection was made through the skin and subcutaneous tissue. Careful dissection was then performed down to the medial aspect of the ankle where the fracture site was immediately identified. The periosteum was elevated and the fracture site cleaned. This was then reduced under direct visualization and held in place with a dental tool. 2 percutaneous guidewires for 4.0 mm cannulated screws were then placed from distal to proximal into the medial malleolus past the fracture site and into the distal tibia. These were verified to be in appropriate position, out of the joint surface and the fracture well reduced. A small incision was made over the guidewires and these were subsequently measured and the near cortex drilled. Appropriate length cannulated screws were then placed over these guidewires. The guidewires were removed. Again the fracture was found to be in appropriate reduction and mortise appeared intact. At this time, and external rotation stress test was performed. There is no evidence of medial clear space or syndesmotic widening. Both incisions were thoroughly irrigated with normal saline laden with gentamicin. The tourniquet was deflated and hemostasis was achieved. The deep tissue was closed with #1 Vicryl sutures and the subcutaneous tissue closed with 2-0 Vicryl sutures. The skin was closed with 2-0 nylon sutures in horizontal mattress fashion. Sterile dressings were applied and a short leg splint. Patient was then awoken from general anesthesia without complication. Disposition: Nonweightbearing right lower extremity in splint until follow-up.
--- NOTE | 2018-06-03 06:41 | P.PNOP ---
Subjective Interval history: POD 2 s/p ORIF right ankle doingn well. pain controlled. out of bed with walker on own. pain controlled Physical Exam Vital signs: Vital Signs 06/02/18 07:49 06/02/18 08:00 06/02/18 08:34 Temperature 98.6 F Pulse Rate 98 H Respiratory Rate 18 18 18 Blood Pressure 128/62 Pulse Oximetry 94 L 06/02/18 10:14 06/02/18 10:44 06/02/18 12:00 Temperature 98.1 F Pulse Rate 78 Respiratory Rate 18 18 18 Blood Pressure 122/61 Pulse Oximetry 96 06/02/18 14:10 06/02/18 16:00 06/02/18 17:42 Temperature 98.2 F Pulse Rate 91 H Respiratory Rate 18 18 18 Blood Pressure 112/78 Pulse Oximetry 98 06/02/18 21:27 06/03/18 00:00 06/03/18 04:00 Temperature 98.1 F 97.9 F 97.4 F L Pulse Rate 75 69 74 Respiratory Rate 20 20 18 Blood Pressure 110/57 L 104/51 L 110/52 L Pulse Oximetry 94 L 97 97 Intake & Output 06/02/18 06/02/18 06/03/18 06:59 18:59 06:59 Intake Total 370 / 370 650 / 650 770 / 770 Output Total 200 / 200 1100 / 1100 Balance 370 / 370 450 / 450 -330 / -330 Weight 93.1 kg 94.3 kg Intake: IV 50 / 50 50 / 50 50 / 50 Cleocin 600 mg/NS Premix 600 mg 50 / 50 50 / 50 In 50 ml @ 100 mls/hr IV.SIG Q8H [facility] Rx#:[id number] Oral 320 / 320 600 / 600 720 / 720 Output: Urine 200 / 200 1100 / 1100 Other: # Voids 1 3 # Urine Diapers 3 Date of Last Bowel Movement 05/31/18 05/31/18 06/02/18 Narrative: RLE: +short leg splint. in good repair. nvi. Results - Labs CBC & Chem 7: 06/02/18 06:19 06/02/18 06:19 Laboratory Results - last 24 hr 06/02/18 06/02/18 06:19 06:19 WBC 4.6 RBC 2.50 L Hgb 10.8 L Hct 31.1 L MCV 124.2 H MCH 43.0 H MCHC 34.6 RDW 13.8 Plt Count 364 MPV 7.6 Sodium 138 Potassium 4.2 Chloride 107 Carbon Dioxide 22.0 Anion Gap 9 BUN 8 Creatinine 0.96 Estimated GFR 78 L Random Glucose 125 H Calcium 8.3 L Assessment and Plan - Assessment and Plan 67-year-old male, POD#2 s/p ORIF R ankle 1. Nonweightbearing right lower extremity in splint. Splint is to remain in place until patient follows up. 2. Physical therapy for mobilization 3. Plan for discharge home vs rehab once mobilizing with therapy and pain well controlled. 4. elevate and keep dry 5. follow up with Dr Wilson in 2 weeks
[2018-06-03] MEDS: Dextrose 5%/NaCl 0.9% Inj 1,000 ML IV.CONT SCH ×3 (06:55→17:04)
[2018-06-03 08:08] LABS: Hematocrit 27.3 % (39.0-51.0); Hemoglobin 9.8 gm/dL (13.0-17.0); Mean Corpuscular HGB Conc 35.9 % (32.0-36.0); Mean Corpuscular Volume 122.8 fL (80.0-100.0); Mean Platelet Volume 7.3 fL (7.0-11.0); Platelet Count 279 th/mm3 (150-450); Red Blood Count 2.23 mil/mm3 (4.50-5.90); Red Cell Distribution Width 13.6 % (11.6-17.2); White Blood Count 2.9 th/mm3 (4.0-11.0)
[2018-06-03] MEDS: Senna/Docusate Sodium 8.6/50 MG Tablet PO SCH ×2 (10:18→20:06)
[2018-06-03] MEDS: Hydroxyurea 500 MG Capsule PO SCH (10:19)
--- NOTE | 2018-06-03 16:14 | P.PNIM ---
Subjective Interval history: patient is a 67 y/o male with history of polycythemia who presented to ER after he fall. he says that he fell off a bucket and injured his right ankle. at the time of my evaluation the pain was moderate in intensity. he denies any prodromal symptoms before the fall, including chest pain, sob, or dizziness. he didn't pass out and there's no history of head trauma. 06-01 The patient was seen following surgery. He denied any pain. He said that he was looking forward to having something to eat. Discussed with nursing. 06-02 The patient was eating breakfast. He stated the morphine did not last too long and was wondering about starting pills. He said that he would be willing to work with physical therapy. He had no acute complaints at this time. Discussed with nursing. 06-03 AWAIT PLACEMENT COMPLAINS OF PAIN RIGHT LE NOT ABLE TO DO ANY WEIGHT BEARING ON RIGHT LE WILL NEED SNF [facility]WAIT [facility] FOR PLACEMENT AM LABS DW RN AND PT AND CM Physical Exam Vital signs: Vital Signs 06/02/18 17:42 06/02/18 21:27 06/03/18 00:00 Temperature 98.1 F 97.9 F Pulse Rate 75 69 Respiratory Rate 18 20 20 Blood Pressure 110/57 L 104/51 L Pulse Oximetry 94 L 97 06/03/18 04:00 06/03/18 08:00 06/03/18 10:22 Temperature 97.4 F L 97.7 F Pulse Rate 74 69 Respiratory Rate 18 18 18 Blood Pressure 110/52 L 125/65 Pulse Oximetry 97 95 06/03/18 12:00 Temperature 98.1 F Pulse Rate 79 Respiratory Rate 20 Blood Pressure 136/67 Pulse Oximetry 95 Intake & Output 06/02/18 06/03/18 06/03/18 18:59 06:59 18:59 Intake Total 650 / 650 770 / 770 Output Total 200 / 200 1100 / 1100 Balance 450 / 450 -330 / -330 Weight 94.3 kg Intake: IV 50 / 50 50 / 50 Cleocin 600 mg/NS Premix 600 mg 50 / 50 In 50 ml @ 100 mls/hr IV.SIG Q8H [facility] Rx#:[id number] Oral 600 / 600 720 / 720 Output: Urine 200 / 200 1100 / 1100 Other: # Voids 3 # Urine Diapers 3 Date of Last Bowel Movement 05/31/18 06/02/18 Narrative: GENERAL: Well-nourished, well-developed male patient, lying in bed in no acute distress. SKIN: Focused skin assessment warm/dry. HEAD: Normocephalic. EYES: No scleral icterus. No injection or drainage. NECK: Supple, trachea midline. No JVD or lymphadenopathy. CARDIOVASCULAR: Regular rate and rhythm without murmurs, gallops, or rubs. RESPIRATORY: Breath sounds equal bilaterally. No accessory muscle use. GASTROINTESTINAL: Abdomen soft, non-tender, nondistended. EXTREMITY: The right lower extremity is bandaged. NEUROVASCULAR: No gross deficits. BACK: Nontender without obvious deformity. No CVA tenderness. RLE: +short leg splint. in good repair. nvi. Results - Labs CBC & Chem 7: 06/03/18 07:25 06/02/18 06:19 Laboratory Results - last 24 hr 06/03/18 07:25 WBC 2.9 L RBC 2.23 L Hgb 9.8 L Hct 27.3 L MCV 122.8 H MCH 44.0 H MCHC 35.9 RDW 13.6 Plt Count 279 MPV 7.3 - Imaging Ankle X-Ray 05/31/18 13:01 CONCLUSION: Trimalleolar fracture involving the ankle with posterior joint dislocation. Chest X-Ray 05/31/18 13:48 CONCLUSION: No focal or acute intrathoracic disease. No significant changes. Ankle X-Ray 05/31/18 14:56 CONCLUSION: Status post closed reduction involving the previously noted posterior joint dislocation at the ankle. There is improved alignment of the fracture fragments on this postreduction study. Ankle X-Ray 06/01/18 00:00 CONCLUSION: Successful open reduction and internal fixation of bimalleolar fracture with baptism of the ankle mortise. - Procedures Date of procedure: 06/02/18 Procedure: Open reduction internal fixation of right trimalleolar ankle fracture dislocation with fixation of medial and lateral malleoli Implants: Synthes Anesthesia: GETA Surgeon: Mary Jane Wilson MD Assessment and Plan - Plan Right ankle fracture After a fall. Orthopedic surgery consult appreciated. S/p repair 06/01. - weightbearing, wound care and anticoagulation per surgery. - rehab efforts. - incentive spirometry. - [place] and morphine as needed with a bowel regimen. Polycythemia Stable at this time. - resume home hydroxyurea. Anemia S/t above. - CBC in AM. Hypoglycemia Glucose was 52 on admission. Not on hypoglycemics. - ADAT. - resolved. DVT prophylaxis: per ortho Code Status: FULL CODE Discussed Condition With: RN AND PT AND CM Discharge Planning: [facility]WAIT [facility]PROVAL BY [facility] FOR SNF/DISCHARGE DUE TO NWB OF RIGHT LE
[2018-06-04] MEDS: Dextrose 5%/NaCl 0.9% Inj 1,000 ML IV.CONT SCH ×2 (06:22→14:28)
[2018-06-04] MEDS: Hydroxyurea 500 MG Capsule PO SCH (08:11)
[2018-06-04] MEDS: Senna/Docusate Sodium 8.6/50 MG Tablet PO SCH ×2 (08:11→21:37)
--- NOTE | 2018-06-04 09:28 | P.PNOP ---
Subjective Interval history: Sitting at bedside. Is getting around well with walker Physical Exam Vital signs: Vital Signs 06/03/18 10:22 06/03/18 12:00 06/03/18 16:00 Temperature 98.1 F 98.4 F Pulse Rate 79 83 Respiratory Rate 18 20 17 Blood Pressure 136/67 138/67 Pulse Oximetry 95 96 06/03/18 20:00 06/03/18 20:06 06/04/18 00:00 Temperature 98.2 F 97.7 F Pulse Rate 75 73 Respiratory Rate 20 18 20 Blood Pressure 125/56 L 140/68 Pulse Oximetry 94 L 96 06/04/18 04:00 06/04/18 04:16 06/04/18 08:00 Temperature 97.7 F 97.7 F Pulse Rate 69 59 L Respiratory Rate 20 18 16 Blood Pressure 129/66 Pulse Oximetry 96 95 06/04/18 08:11 Temperature Pulse Rate Respiratory Rate 18 Blood Pressure Pulse Oximetry Intake & Output 06/03/18 06/04/18 06/04/18 18:59 06:59 18:59 Intake Total 1680 / 1680 Output Total 800 / 800 Balance 1680 / 1680 -800 / -800 Weight 93.9 kg Intake: Oral 1680 / 1680 Output: Urine 800 / 800 Other: # Voids 4 Date of Last Bowel Movement 06/02/18 # Bowel Movements 1 Narrative: Right lower extremity: Clean dry dressings intact. Intact sensation with good capillary refills in toes. No pain with hip or knee range of motion Results - Labs CBC & Chem 7: 06/03/18 07:25 06/02/18 06:19 - Procedures Date of procedure: 06/02/18 Procedure: Open reduction internal fixation of right trimalleolar ankle fracture dislocation with fixation of medial and lateral malleoli Implants: Synthes Anesthesia: GETA Surgeon: Mary Jane Wilson MD Assessment and Plan - Assessment and Plan 67-year-old male, POD#3 s/p ORIF R ankle 1. Nonweightbearing right lower extremity in splint. Splint is to remain in place until patient follows up. 2. Physical therapy for mobilization 3. Plan for discharge to rehab once bed is available. 4. elevate and keep dry 5. follow up with Dr Wilson in 2 weeks
[2018-06-04 09:54] LABS: Baso % (Auto) 0.4 % (0.0-2.0); Eos # (Auto) 0.1 th/mm3 (0.0-0.4); Eos % (Auto) 1.8 % (0.0-4.0); Hematocrit 31.5 % (39.0-51.0); Hemoglobin 10.9 gm/dL (13.0-17.0); Lymph # (Auto) 0.9 th/mm3 (1.0-4.8); Lymph % (Auto) 26.7 % (9.0-44.0); Mean Corpuscular HGB Conc 34.8 % (32.0-36.0); Mean Corpuscular Hemoglobin 42.6 pg (27.0-34.0); Mean Corpuscular Volume 122.6 fL (80.0-100.0); Mean Platelet Volume 7.2 fL (7.0-11.0); Mono # (Auto) 0.4 th/mm3 (0.0-0.9); Mono % (Auto) 11.2 % (0.0-8.0); Neut # (Auto) 2.1 th/mm3 (1.8-7.7); Neut % (Auto) 59.9 % (16.0-70.0); Platelet Count 414 th/mm3 (150-450); Red Blood Count 2.57 mil/mm3 (4.50-5.90); Red Cell Distribution Width 13.4 % (11.6-17.2); White Blood Count 3.5 th/mm3 (4.0-11.0)
[2018-06-04 10:21] LABS: Albumin 2.8 g/dL (3.4-5.0); Anion Gap 5 meq/L (5-15); Aspartate Aminotransferase 21 U/L (15-37); Blood Urea Nitrogen 8 mg/dL (7-18); Calcium 8.3 mg/dL (8.5-10.1); Carbon Dioxide 28.5 meq/L (21.0-32.0); Chloride 107 meq/L (98-107); Glomerular Filtration Rate 79 mL/min (>89); Glucose,Random 97 mg/dL (74-106); Magnesium 2.1 mg/dL (1.5-2.5); Potassium 3.9 meq/L (3.5-5.1); Sodium 140 meq/L (136-145)
[2018-06-04 10:31] LABS: Alanine Aminotransferase 28 U/L (12-78); Alkaline Phosphatase 62 U/L (45-117); Free T4 (Free Thyroxine) 1.37 ng/dL (0.76-1.46); Total Protein 6.1 g/dL (6.4-8.2)
[2018-06-04 11:38] LABS: Hemoglobin A1c 4.5 % (4.3-6.0)
--- NOTE | 2018-06-04 12:16 | P.PNIM ---
Subjective Interval history: patient is a 67 y/o male with history of polycythemia who presented to ER after he fall. he says that he fell off a bucket and injured his right ankle. at the time of my evaluation the pain was moderate in intensity. he denies any prodromal symptoms before the fall, including chest pain, sob, or dizziness. he didn't pass out and there's no history of head trauma. 06-01 The patient was seen following surgery. He denied any pain. He said that he was looking forward to having something to eat. Discussed with nursing. 06-02 The patient was eating breakfast. He stated the morphine did not last too long and was wondering about starting pills. He said that he would be willing to work with physical therapy. He had no acute complaints at this time. Discussed with nursing. 06-03 AWAIT PLACEMENT COMPLAINS OF PAIN RIGHT LE NOT ABLE TO DO ANY WEIGHT BEARING ON RIGHT LE WILL NEED SNF [facility]WAIT [facility] FOR PLACEMENT AM LABS [facility] RN AND PT AND CM 06-04 HOPEFULLY TO SNF TOMORROW HAS BEEN CLEARED BY ORTHO [facility] RN AND PT ANC CM NO WEIGHT BEARING ON RIGHT LE Physical Exam Vital signs: Vital Signs 06/03/18 16:00 06/03/18 20:00 06/03/18 20:06 Temperature 98.4 F 98.2 F Pulse Rate 83 75 Respiratory Rate 17 20 18 Blood Pressure 138/67 125/56 L Pulse Oximetry 96 94 L 06/04/18 00:00 06/04/18 04:00 06/04/18 04:16 Temperature 97.7 F 97.7 F Pulse Rate 73 69 Respiratory Rate 20 20 18 Blood Pressure 140/68 Pulse Oximetry 96 96 06/04/18 08:00 06/04/18 08:11 06/04/18 11:41 Temperature 97.7 F Pulse Rate 59 L Respiratory Rate 16 18 18 Blood Pressure 129/66 Pulse Oximetry 95 Intake & Output 06/03/18 06/04/18 06/04/18 18:59 06:59 18:59 Intake Total 1680 / 1680 Output Total 800 / 800 Balance 1680 / 1680 -800 / -800 Weight 93.9 kg Intake: Oral 1680 / 1680 Output: Urine 800 / 800 Other: # Voids 4 Date of Last Bowel Movement 06/02/18 06/02/18 # Bowel Movements 1 Narrative: GENERAL: Well-nourished, well-developed male patient, lying in bed in no acute distress. SKIN: Focused skin assessment warm/dry. HEAD: Normocephalic. EYES: No scleral icterus. No injection or drainage. NECK: Supple, trachea midline. No JVD or lymphadenopathy. CARDIOVASCULAR: Regular rate and rhythm without murmurs, gallops, or rubs. RESPIRATORY: Breath sounds equal bilaterally. No accessory muscle use. GASTROINTESTINAL: Abdomen soft, non-tender, nondistended. EXTREMITY: The right lower extremity is bandaged. NEUROVASCULAR: No gross deficits. BACK: Nontender without obvious deformity. No CVA tenderness. Right lower extremity: Clean dry dressings intact. Intact sensation with good capillary refills in toes. No pain with hip or knee range of motion Results - Labs CBC & Chem 7: 06/04/18 09:35 06/04/18 09:35 Laboratory Results - last 24 hr 06/04/18 06/04/18 09:35 09:35 WBC 3.5 L RBC 2.57 L Hgb 10.9 L Hct 31.5 L MCV 122.6 H MCH 42.6 H MCHC 34.8 RDW 13.4 Plt Count 414 D MPV 7.2 Neut % (Auto) 59.9 Lymph % (Auto) 26.7 [place] % (Auto) 11.2 H Eos % (Auto) 1.8 Baso % (Auto) 0.4 Neut # (Auto) 2.1 Lymph # (Auto) 0.9 L [place] # (Auto) 0.4 Eos # (Auto) 0.1 Baso # (Auto) 0.0 WBC Differential . Differential Comment Auto diff final Sodium 140 Potassium 3.9 Chloride 107 Carbon Dioxide 28.5 Anion Gap 5 BUN 8 Creatinine 0.95 Estimated GFR 79 L Random Glucose 97 Calcium 8.3 L Phosphorus 3.0 Magnesium 2.1 Total Bilirubin 0.5 AST 21 ALT 28 Alkaline Phosphatase 62 Total Protein 6.1 L Albumin 2.8 L TSH 1.990 Free T4 1.37 - Procedures Date of procedure: 06/02/18 Procedure: Open reduction internal fixation of right trimalleolar ankle fracture dislocation with fixation of medial and lateral malleoli Implants: Synthes Anesthesia: GETA Surgeon: Mary Jane Wilson MD Assessment and Plan - Plan Right ankle fracture After a fall. Orthopedic surgery consult appreciated. S/p repair 06/01. - weightbearing, wound care and anticoagulation per surgery. - rehab efforts. - incentive spirometry. - [place] and morphine as needed with a bowel regimen. Polycythemia Stable at this time. - resume home hydroxyurea. Anemia S/t above. - CBC in AM. Hypoglycemia Glucose was 52 on admission. Not on hypoglycemics. - ADAT. - resolved. DVT prophylaxis: per ortho HOPEFULLY TO SNF IN NEXT DAY OR SO Code Status: FULL CODE Discussed Condition With: RN AND PT AND CM Discharge Planning: AWAIT APPROVAL BY [facility] OR INSURANCE COMPANY FOR SNF/DISCHARGE DUE TO NWB OF RIGHT LE
[2018-06-05 01:25] VITALS: TEMP 97.9; O2SAT 97
[2018-06-05 05:25] VITALS: BP 125/69; PULSE 73
[2018-06-05] MEDS: Dextrose 5%/NaCl 0.9% Inj 1,000 ML IV.CONT SCH ×2 (05:32→09:50)
[2018-06-05] MEDS: Senna/Docusate Sodium 8.6/50 MG Tablet PO SCH (09:48)
[2018-06-05] MEDS: Hydroxyurea 500 MG Capsule PO SCH (09:48)
--- NOTE | 2018-06-05 12:58 | P.PNIM ---
Subjective Interval history: patient is a 67 y/o male with history of polycythemia who presented to ER after he fall. he says that he fell off a bucket and injured his right ankle. at the time of my evaluation the pain was moderate in intensity. he denies any prodromal symptoms before the fall, including chest pain, sob, or dizziness. he didn't pass out and there's no history of head trauma. 06-01 The patient was seen following surgery. He denied any pain. He said that he was looking forward to having something to eat. Discussed with nursing. 06-02 The patient was eating breakfast. He stated the morphine did not last too long and was wondering about starting pills. He said that he would be willing to work with physical therapy. He had no acute complaints at this time. Discussed with nursing. 06-03 AWAIT PLACEMENT COMPLAINS OF PAIN RIGHT LE NOT ABLE TO DO ANY WEIGHT BEARING ON RIGHT LE WILL NEED SNF AWAIT [facility]/MEDICARE/[facility] FOR PLACEMENT AM LABS [facility] RN AND PT AND CM 06-04 HOPEFULLY TO SNF TOMORROW HAS BEEN CLEARED BY ORTHO [facility] RN AND PT ANC CM NO WEIGHT BEARING ON RIGHT LE 06-05 HAS BEEN ACCEPTED AT [facility] AND [employer] HAS GIVEN APPROVAL DC TO SNF TODAY E FORCSE VIEWED NO ENTRIES IN THE SYSTEM- PATIENT NORMALLY ONLY GOES TO [place] [facility] WILL BE GIVEN RX FOR NORCO 7.5/325 #40 BY ORTHO Physical Exam Vital signs: Vital Signs 06/04/18 14:27 06/04/18 15:22 06/04/18 16:00 Temperature 97.9 F Pulse Rate 77 Respiratory Rate 18 18 16 Blood Pressure 129/62 Pulse Oximetry 99 06/04/18 17:17 06/04/18 20:00 06/05/18 00:00 Temperature 98.1 F 97.9 F Pulse Rate 72 77 Respiratory Rate 16 18 18 Blood Pressure 137/73 142/64 H Pulse Oximetry 96 97 06/05/18 04:00 06/05/18 09:48 06/05/18 11:30 Temperature 97.9 F Pulse Rate 73 Respiratory Rate 18 18 17 Blood Pressure 125/69 Pulse Oximetry 97 Intake & Output 06/04/18 06/05/18 06/05/18 18:59 06:59 18:59 Intake Total 600 / 600 Output Total 575 / 575 Balance 600 / 600 -575 / -575 Weight 92.5 kg Intake: Oral 600 / 600 Output: Urine 575 / 575 Other: # Voids 3 Date of Last Bowel Movement 06/04/18 06/04/18 06/04/18 # Bowel Movements 2 Narrative: GENERAL: Well-nourished, well-developed male patient, lying in bed in no acute distress. SKIN: Focused skin assessment warm/dry. HEAD: Normocephalic. EYES: No scleral icterus. No injection or drainage. NECK: Supple, trachea midline. No JVD or lymphadenopathy. CARDIOVASCULAR: Regular rate and rhythm without murmurs, gallops, or rubs. RESPIRATORY: Breath sounds equal bilaterally. No accessory muscle use. GASTROINTESTINAL: Abdomen soft, non-tender, nondistended. EXTREMITY: The right lower extremity is bandaged. NEUROVASCULAR: No gross deficits. BACK: Nontender without obvious deformity. No CVA tenderness. Right lower extremity: Clean dry dressings intact. Intact sensation with good capillary refills in toes. No pain with hip or knee range of motion Results - Labs CBC & Chem 7: 06/04/18 09:35 06/04/18 09:35 Laboratory Results - last 24 hr 06/04/18 09:35 Hemoglobin A1c 4.5 - Procedures Date of procedure: 06/02/18 Procedure: Open reduction internal fixation of right trimalleolar ankle fracture dislocation with fixation of medial and lateral malleoli Implants: Synthes Anesthesia: GETA Surgeon: Mary Jane Wilson MD Assessment and Plan - Plan Right ankle fracture After a fall. Orthopedic surgery consult appreciated. S/p repair 06/01. - weightbearing, wound care and anticoagulation per surgery. - rehab efforts. - incentive spirometry. - [place] and morphine as needed with a bowel regimen. Polycythemia Stable at this time. - resume home hydroxyurea. Anemia S/t above. - CBC in AM. Hypoglycemia Glucose was 52 on admission. Not on hypoglycemics. - ADAT. - resolved. DVT prophylaxis: per ortho ACCEPTED AT [facility] WRITTEN BY ORTHO Code Status: FULL CODE Discussed Condition With: RN AND PT AND CM Discharge Planning: DC TO [facility] TODAY
--- NOTE | 2018-06-05 13:04 | P.DS ---
Date of admission: 05/31/18 16:40 Primary care physician: [facility] Attending physician on discharge: Jas Parra Anticipated date of discharge: 06/05/18 Brief History from admission: patient is a 67 y/o male with history of polycythemia who presented to ER after he fall. he says that he fell off a bucket and injured his right ankle. at the time of my evaluation the pain was moderate in intensity. he denies any prodromal symptoms before the fall, including chest pain, sob, or dizziness. he didn't pass out and there's no history of head trauma. DS: Diagnosis - Discharge Diagnosis (1) Closed trimalleolar fracture of ankle Status: Acute DS: Medications - Discharge Medications Prescriptions: hydrocodone-acetaminophen [[place]] 1 tab PO Q4H #40 tab DS: Summary Hospital Course: patient is a 67 y/o male with history of polycythemia who presented to ER after he fall. he says that he fell off a bucket and injured his right ankle. at the time of my evaluation the pain was moderate in intensity. he denies any prodromal symptoms before the fall, including chest pain, sob, or dizziness. he didn't pass out and there's no history of head trauma. 7- The patient was seen following surgery. He denied any pain. He said that he was looking forward to having something to eat. Discussed with nursing. 7 The patient was eating breakfast. He stated the morphine did not last too long and was wondering about starting pills. He said that he would be willing to work with physical therapy. He had no acute complaints at this time. Discussed with nursing. 06-03 AWAIT PLACEMENT COMPLAINS OF PAIN RIGHT LE NOT ABLE TO DO ANY WEIGHT BEARING ON RIGHT LE WILL NEED SNF AWAIT [facility]/MEDICARE/[facility] FOR PLACEMENT AM LABS [facility] RN AND PT AND CM 06-04 HOPEFULLY TO SNF TOMORROW HAS BEEN CLEARED BY ORTHO [facility] RN AND PT ANC CM NO WEIGHT BEARING ON RIGHT LE 06-05 HAS BEEN ACCEPTED AT [facility] AND [employer] HAS GIVEN APPROVAL DC TO SNF TODAY E FORCSE VIEWED NO ENTRIES IN THE SYSTEM- [facility] BE GIVEN RX FOR NORCO 7.5/325 #40 BY ORTHO - Time Spent with Patient Total time spent providing and/or coordinating discharge services: Greater than 30 minutes - Quality: VTE Deep Vein Thrombosis/Pulmonary Embolism Present on Admission: No Exam Vital signs: Vital Signs 06/04/18 14:27 06/04/18 15:22 06/04/18 16:00 Temperature 97.9 F Pulse Rate 77 Respiratory Rate 18 18 16 Blood Pressure 129/62 Pulse Oximetry 99 06/04/18 17:17 06/04/18 20:00 06/05/18 00:00 Temperature 98.1 F 97.9 F Pulse Rate 72 77 Respiratory Rate 16 18 18 Blood Pressure 137/73 142/64 H Pulse Oximetry 96 97 06/05/18 04:00 06/05/18 09:48 06/05/18 11:30 Temperature 97.9 F Pulse Rate 73 Respiratory Rate 18 18 17 Blood Pressure 125/69 Pulse Oximetry 97 Intake & Output 06/04/18 06/05/18 06/05/18 18:59 06:59 18:59 Intake Total 600 / 600 Output Total 575 / 575 Balance 600 / 600 -575 / -575 Weight 92.5 kg Intake: Oral 600 / 600 Output: Urine 575 / 575 Other: # Voids 3 Date of Last Bowel Movement 06/04/18 06/04/18 06/04/18 # Bowel Movements 2 Narrative: GENERAL: Well-nourished, well-developed male patient, lying in bed in no acute distress. SKIN: Focused skin assessment warm/dry. HEAD: Normocephalic. EYES: No scleral icterus. No injection or drainage. NECK: Supple, trachea midline. No JVD or lymphadenopathy. CARDIOVASCULAR: Regular rate and rhythm without murmurs, gallops, or rubs. RESPIRATORY: Breath sounds equal bilaterally. No accessory muscle use. GASTROINTESTINAL: Abdomen soft, non-tender, nondistended. EXTREMITY: The right lower extremity is bandaged. NEUROVASCULAR: No gross deficits. BACK: Nontender without obvious deformity. No CVA tenderness. Right lower extremity: Clean dry dressings intact. Intact sensation with good capillary refills in toes. No pain with hip or knee range of motion Results Procedures completed during hospitalization: Date of procedure: 06/02/18 Procedure: Open reduction internal fixation of right trimalleolar ankle fracture dislocation with fixation of medial and lateral malleoli Implants: Synthes Anesthesia: GETA Surgeon: Mary Jane Wilson MD Completed studies during hospitalization: Laboratory Results WBC 3.5 th/mm3 (4.0-11.0) L 06/04/18 09:35 RBC 2.57 mil/mm3 (4.50-5.90) L 06/04/18 09:35 Hgb 10.9 gm/dL (13.0-17.0) L 06/04/18 09:35 Hct 31.5 % (39.0-51.0) L 06/04/18 09:35 MCV 122.6 fL (80.0-100.0) H 06/04/18 09:35 MCH 42.6 pg (27.0-34.0) H 06/04/18 09:35 MCHC 34.8 % (32.0-36.0) 06/04/18 09:35 RDW 13.4 % (11.6-17.2) 06/04/18 09:35 Plt Count 414 th/mm3 (150-450) D 06/04/18 09:35 MPV 7.2 fL (7.0-11.0) 06/04/18 09:35 Neut % (Auto) 59.9 % (16.0-70.0) 06/04/18 09:35 Lymph % (Auto) 26.7 % (9.0-44.0) 06/04/18 09:35 [place] % (Auto) 11.2 % (0.0-8.0) H 06/04/18 09:35 Eos % (Auto) 1.8 % (0.0-4.0) 06/04/18 09:35 Baso % (Auto) 0.4 % (0.0-2.0) 06/04/18 09:35 Neut # (Auto) 2.1 th/mm3 (1.8-7.7) 06/04/18 09:35 Lymph # (Auto) 0.9 th/mm3 (1.0-4.8) L 06/04/18 09:35 [place] # (Auto) 0.4 th/mm3 (0.0-0.9) 06/04/18 09:35 Eos # (Auto) 0.1 th/mm3 (0.0-0.4) 06/04/18 09:35 Baso # (Auto) 0.0 th/mm3 (0.0-0.2) 06/04/18 09:35 WBC Differential . 06/04/18 09:35 Differential Comment Auto diff final 06/04/18 09:35 PT 10.7 sec (9.8-11.6) 05/31/18 15:30 INR 1.1 Ratio 05/31/18 15:30 APTT 24.3 sec (24.3-30.1) 05/31/18 15:30 Sodium 140 meq/L (136-145) 06/04/18 09:35 Potassium 3.9 meq/L (3.5-5.1) 06/04/18 09:35 Chloride 107 meq/L (98-107) 06/04/18 09:35 Carbon Dioxide 28.5 meq/L (21.0-32.0) 06/04/18 09:35 Anion Gap 5 meq/L (5-15) 06/04/18 09:35 BUN 8 mg/dL (7-18) 06/04/18 09:35 Creatinine 0.95 mg/dL (0.60-1.30) 06/04/18 09:35 Estimated GFR 79 mL/min (>89) L 06/04/18 09:35 POC Glucose 159 mg/dl (68-110) H 06/01/18 18:18 Random Glucose 97 mg/dL (74-106) 06/04/18 09:35 Hemoglobin A1c 4.5 % (4.3-6.0) 06/04/18 09:35 Calcium 8.3 mg/dL (8.5-10.1) L 06/04/18 09:35 Phosphorus 3.0 mg/dL (2.5-4.9) 06/04/18 09:35 Magnesium 2.1 mg/dL (1.5-2.5) 06/04/18 09:35 Total Bilirubin 0.5 mg/dL (0.2-1.0) 06/04/18 09:35 AST 21 U/L (15-37) 06/04/18 09:35 ALT 28 U/L (12-78) 06/04/18 09:35 Alkaline Phosphatase 62 U/L (45-117) 06/04/18 09:35 Total Protein 6.1 g/dL (6.4-8.2) L 06/04/18 09:35 Albumin 2.8 g/dL (3.4-5.0) L 06/04/18 09:35 TSH 1.990 uIU/mL (0.358-3.740) 06/04/18 09:35 Free T4 1.37 ng/dL (0.76-1.46) 06/04/18 09:35 Impressions Chest X-Ray 05/31/18 13:48 CONCLUSION: No focal or acute intrathoracic disease. No significant changes. Ankle X-Ray 06/01/18 00:00 CONCLUSION: Successful open reduction and internal fixation of bimalleolar fracture with hindu of the ankle mortise. Labs on day of discharge: Labs from last 24 hours 06/04/18 09:35 Hemoglobin A1c 4.5 - Impressions ITS Impressions Chest X-Ray 05/31/18 13:48 CONCLUSION: No focal or acute intrathoracic disease. No significant changes. Ankle X-Ray 06/01/18 00:00 CONCLUSION: Successful open reduction and internal fixation of bimalleolar fracture with hindu of the ankle mortise. Discharge Plan - Discharge Disposition Patient Disposition: 03 Discharge to SNF - Discharge Condition Condition: Stable - Discharge Order Discharge Orders: Discharge Order (Routine); Ordered 06/05/18 Ordered By: Jas Parra Orthopedic Clear for Discharge (Routine); Ordered 06/03/18 Ordered By: Paul Benites - Discharge Details Anticipated Discharge Date: 06/05/18 Discharge Comment: DC TO SNF - Physicians Team Primary Care Provider: [facility] [place] Attending Provider: Jas Parra Other Providers: Mary Jane Wilson MD ; [facility],[place]
[2018-06-05 14:01] VITALS: RESP 18
== END 2018-06-05 15:46 ==
LOC: NEPD 12:05 → NEDA 16:40 → N06 19:46
PROVIDERS: ADMIT Hospitalist; ATTEND Hospitalist